=== PATIENT | female | born 1975 | race Asian ===

== ENCOUNTER → 2018-08-25 | Day surgery (SDC) | payer OTHER ==
--- NOTE | 2018-08-28 18:59 | OP ---
DATE OF OPERATION: 08/25/2018 PREOPERATIVE DIAGNOSIS: Right breast mass, 3 o'clock, 2 cm from the nipple, and left breast mass, 4 o'clock retroareolar. POSTOPERATIVE DIAGNOSIS: Right breast mass, 3 o'clock, 2 cm from the nipple, and left breast mass, 4 o'clock retroareolar. PROCEDURE: Bilateral ultrasound guided core biopsies and clip placements. ANESTHESIA: Local. ATTENDING: Elba Lugo M.D. ESTIMATED BLOOD LOSS: Minimal. COMPLICATIONS: None. DESCRIPTION OF PROCEDURE: Patient was made aware of the risks and benefits of the procedure and consented. She was placed in supine position. The right side was approached first. Under sterile conditions with 1% lidocaine for local anesthesia, a small olvin was made in the skin. Using a 13 gauge suction biopsy device, under ultrasound guidance multiple cores were obtained and submitted to pathology. Likewise under ultrasound guidance a U-shaped clip was placed into the biopsy region. The patient tolerated procedure well. Steri-Strips and a sterile bandage were then applied. The left side was then approached using separate instruments and biopsy needle. Under sterile conditions with 1% lidocaine for local anesthesia, a small olvin was made in the skin. Using a 13 gauge suction biopsy device, under ultrasound guidance multiple cores were obtained and submitted to pathology. Likewise under ultrasound guidance a bowtie clip was placed into the biopsy region. Well tolerated by the patient. Steri-Strips and a sterile bandage were applied. Will contact her with results. ELBA LUGO M.D. [id number]
--- NOTE | 2018-08-30 15:34 | PATH ---
Surgical Pathology Report Patient Name: GURINDER FREEMAN [facility]. Rec. #: [id number] /Age/Gender: 1975 (Age: 42) / F Account: [id number] Location: [facility] Taken: 08/25/2018 Received: 08/25/2018 Reported: 08/30/2018 Physicians: Elba Lugo M.D. Specimen(s) Received A: LEFT BREAST CORE BIOPSY 4NRA B: RIGHT BREAST CORE BIOPSY 3N2 Clinical History Non-palpable lesion, suspicious for malignancy Final Diagnosis A. LEFT BREAST, 4NRA, CORE BIOPSY: DUCTAL CARCINOMA IN SITU (DCIS), SOLID AND FOCAL MICROPAPILLARY TYPE, INTERMEDIATE NUCLEAR GRADE, WITH LOBULAR EXTENSION. Results of Estrogen Receptor (ER) and Progesterone Receptor (TN) studies performed on block "A1" at [facility] are as follows: ER (clone 6F11 mouse monoclonal antibody by Leica): 98% nuclear staining with strong intensity (Positive). TN (clone16 mouse monoclonal antibody by Leica): 90% nuclear staining with strong intensity (Positive). B. RIGHT BREAST, 3N+2, CORE BIOPSY: DUCTAL CARCINOMA IN SITU (DCIS), HIGH NUCLEAR GRADE, SOLID AND MICROPAPILLARY TYPE, WITH FOCAL NECROSIS AND ASSOCIATED CALCIFICATIONS. Results of Estrogen Receptor (ER) and Progesterone Receptor (TN) studies performed on block "B2" at [facility] are as follows: ER (clone 6F11 mouse monoclonal antibody by Leica): 98% nuclear staining with strong intensity (Positive). TN (clone16 mouse monoclonal antibody by Leica): 95% nuclear staining with strong intensity (Positive). Formalin fixation time (approximately 76 hours) exceeds current ASCO/CAP recommendations for ER, TN and Her2 testing (6-72 hrs). Negative results must be interpreted with caution as false negatives may occur. Cold ischemic time is within recommended guidelines. Comment: Immunohistochemical stains on blocks "A1", "B1" and "B2" show the following results: smooth muscle myosin heavy chain and p63 highlight the myoepithelial cell layer surrounding the lesional ducts, which support the diagnosis of carcinoma in situ. Immunohistochemical stain done on block "A1" shows E-Cadherin to be expressed by the tumor cells, confirms ductal cell phenotype. Electronically Signed Kiyoe Ramos, M.D. Gross Description A. Received in formalin, labeled "left breast core biopsy 4NRA" are 2cores of arthur and yellow soft tissue ranging from 0.9cm to 1.0cm cm in length with a diameter of up to 0.2 cm. Entirely submitted in one cassette. B. Received in formalin, labeled "right breast core biopsy 3N2" are multiple cores of light arthur and yellow-arthur tissue ranging from 0.5 cm to 1.5 cm in length with a diameter of up to 0.2 cm. Entirely submitted in two cassettes. Time from tissue taken to place in formalin: less than 1 minute Total formalin fixation time: Approximately 76 hours __ CHRISTOS/08/28/2018 nicholas/08/28/2018
== END | disposition home or self-care (01) ==
LOC: FRADUS-SUR 15:05
PROVIDERS: ATTEND Surgery Surgical Oncology
PROC: 0HBV3ZX Excision of Bilateral Breast, Percutaneous Approach, Diagnostic (ICD-10-PCS; principal; 2018-08-25)
DX: D05.12 Intraductal carcinoma in situ of left breast (principal); D05.11 Intraductal carcinoma in situ of right breast; N63.10 Unspecified lump in the right breast, unspecified quadrant; N63.23 Unspecified lump in the left breast, lower outer quadrant
CPT/HCPCS: 19083; 87899; 88305-TC; 88341-TC; 88342-TC; A4648

== ENCOUNTER 2018-10-10 08:00 | Inpatient (IN) | payer OTHER ==
--- NOTE | 2018-10-02 10:34 | HP ---
Admitting History and Physical - Primary Care Physician PCP: Elba Lugo - Admission Chief Complaint: Bilateral breast cancer History of Present Illness: 42 year old premenapausal female who recently tested BRCA2 +. Mammogram 08/21 Bilateral US showed suspicious calcifications right breast birad 0. 08/21/2018 Right mag view showed suspicious calcifications with the larger more posterior group seen on US and US core bx sugested. the smaller group could be done stereotactically. Birad 5. Bilateral US 08/21/2018 showed highly suspicious mass right breast in 3:00 position 2 to 3 cm FN .7x.5x.6 cm irregular and assiciated with calcifications. US core bx advised. Left breast 2 :00 2 cm FN showed mass versus complicated cyst .3x.2x.3 cm. Breast MRI 2017 showed suspicious mass 3 to 4:00 posotion on chest wall US core bx advised. probable benign .5 cm mass right breast Birad 4. Left breast suspicious 2 enhancing masses in the 3 to 4:00 position largest .4 cm. focused US left breast 08/24/2018 showed 4:00 position retroareolar regon2 hypoechoic masses which are felt to correspond to MRI..4 cm and .3 cm US guided core of the larger one was advised. Birad 4. 08/25/2018 US core biopsy bilateral core bxs Left retroareolar DCIS ER+pr+. right breast DCIS er+pr+. History Source: Patient Limitations to Obtaining History: No Limitations
--- NOTE | 2018-10-02 11:14 | HP ---
Admitting History and Physical - Primary Care Physician PCP: Elba Lugo - Admission Chief Complaint: Bilateral breast cancer BRCA2 positive History of Present Illness: 42 year old premenapausal female who recently tested positve for BRCA2 gene mutation. Screening mammogram 08/21/2018 showed suspicious calcifications right breast Birad 0. 08/21/2018 Right mag views showed suspicious calcifications with larger more posterior group seen on US US core BX suggested. The smaller group could be done stereotactically. Birad 5. Bilateral us 08/21/2018 showed highly suspicious mass right 3:00 2 to 3 cm FN .7x.5x.6 cm irregular and associated with calcifications. US core bx advised. Left breast showed mass versus cyst at 2:00 2 cm FN. Breast MRI 08/22/2018 showed suspicious mass 3 to 4:00 on chest wall and oprobably benign .5 cm mass right breast. left breast showed two suspicious enhancing masses3 to 4:00 which were felt to correspond to MRI 4 cm and 3 cm. US core bx of the larger one was advised. US core bxs bilaterally 08/25/2018 showed bilateral DCIS ER+ DC+, left was retroareolar. History Source: Patient Limitations to Obtaining History: No Limitations - Past Medical History Infectious Disease: Yes: Other (herpes simplex) - Smoking History Smoking history: Never smoked Have you smoked in the past 12 months: No - Alcohol/Substance Use Hx Alcohol Use: Yes (one per week) Home Medications - Allergies Allergies/Adverse Reactions: Allergies Allergy/AdvReac Type Severity Reaction Status Date / Time No Known Allergies Allergy Verified 10/02/18 10:59 - Home Medications Home Medications (free text): valcyclovir Family Disease History - Family Disease History Family Disease History: CA: Grandparent (pat GM breast bilateral at age 39) Other Family History: pat aunt breast ca 55. pat aunt breast ca BRCA + 60. pat aunt breast ca 60. pat aunt CRC BRCA + 60. mat aunt pancreatic ca 60 Physical Examination Constitutional: Yes: No Distress Breast(s): Yes: Other (Breast dense bilatrally symmetrical bilateral post biopsy changes noadenopathy bilaterally no palpable masses) Problem List - Problems (1) Bilateral malignant neoplasm of breast in female Code(s): C50.911 - MALIGNANT NEOPLASM OF UNSP SITE OF RIGHT FEMALE BREAST; C50.912 - MALIGNANT NEOPLASM OF UNSPECIFIED SITE OF LEFT FEMALE BREAST Qualifiers: Breast location: overlapping sites of breast Estrogen receptor status: positive Qualified Code(s): C50.811 - Malignant neoplasm of overlapping sites of right female breast; C50.812 - Malignant neoplasm of overlapping sites of left female breast; Z17.0 - Estrogen receptor positive status [ER+] Assessment/Plan Bilateral total mastectomies bilateral lymphoscintograms bilateral sentenel node biopsie reconstruction
[2018-10-03 11:27] VITALS: BMI 19.5
[2018-10-10] MEDS ORDERED: MIDAZOLAM HCL 2 MG/2 ML SINGLE DOSE VIAL ONE (10:45)
[2018-10-10] MEDS ORDERED: BUPIVACAINE HCL/PF 2.5 MG/ML - 30 ML VIAL IJ ONE (10:45)
[2018-10-10] MEDS ORDERED: BUPIVACAINE LIPOSOME/PF (EXPAREL) 266 MG/20 ML VIAL ONE (10:45)
[2018-10-10] MEDS ORDERED: ROCURONIUM BROMIDE 50 MG/5 ML VIAL ONE ×2 (10:58→15:50)
[2018-10-10] MEDS ORDERED: PROPOFOL 20 ML ONE ×6 (10:58→15:43)
[2018-10-10] MEDS ORDERED: LIDOCAINE HCL 2% JELLY (5 ML/TUBE) ONE ×2 (11:20)
[2018-10-10] MEDS ORDERED: ALBUTEROL SO4 8 GM HFA INHALER IH ONE (12:09)
[2018-10-10] MEDS ORDERED: GENTAMICIN SO4 80 MG/2 ML VIAL ONE ×2 (12:48→17:44)
[2018-10-10] MEDS ORDERED: ceFAZolin SODIUM 1 GM VIAL ONE ×4 (12:48→17:44)
[2018-10-10] MEDS ORDERED: ISOSULFAN BLUE 10 MG/ML VIAL SQ ONE (13:08)
[2018-10-10] MEDS ORDERED: HYDROmorphone HCL/PF 1 MG/ML AMP ONE ×2 (13:47→16:39)
[2018-10-10] MEDS ORDERED: ONDANSETRON 4 MG/2 ML VIAL IVPUSH PRN ×2 (16:41→16:56)
[2018-10-10] MEDS ORDERED: DEXAMETHASONE SOD PHOSPHATE 4 MG/1 ML VIAL ONE (16:42)
[2018-10-10] MEDS ORDERED: oxyCODONE HCL 5 MG TABLET PO PRN ×2 (16:45→16:47)
[2018-10-10] MEDS ORDERED: LACTATED RINGERS SOLUTION 1,000 ML IV SCH (16:45)
[2018-10-10] MEDS ORDERED: ePHEDrine SULFATE 50 MG/1 ML AMPULE ONE (16:48)
[2018-10-10] MEDS ORDERED: ACETAMINOPHEN 325 MG TABLET (FP) PO PRN (16:56)
[2018-10-10] MEDS ORDERED: ACETAMINOPHEN 325 MG TABLET (FP) PO SCH (17:00)
[2018-10-10] MEDS ORDERED: NITROGLYCERIN 2% OINTMENT - 1GM PACKET TD ONE (18:17)
--- NOTE | 2018-10-10 18:34 | OP ---
DATE OF OPERATION: 10/10/2018 PREOPERATIVE DIAGNOSIS: Bilateral ductal carcinoma in situ and gene positive. POSTOPERATIVE DIAGNOSIS: Bilateral ductal carcinoma in situ and gene positive. PROCEDURE: Bilateral nipple-sparing mastectomies with bilateral sentinel node biopsies. ANESTHESIA: General intubated. ATTENDING SURGEON: Carina Lugo M.D. LIBRARY SALES CONSULTANT: Monico Jacinto ESTIMATED BLOOD LOSS: 300 mL. COMPLICATIONS: None. DESCRIPTION OF PROCEDURE: Patient was made aware of the risks and benefits of the procedure and consented. Preoperatively the patient went to nuclear medicine where each breast was injected with a radiographic tracer. She was placed in a supine position on the operating table, and after general anesthesia was induced the patient was intubated. The operative site was prepped and draped in the usual sterile fashion. The left side was approached first. A curvilinear incision was made in the left breast. Using blunt and sharp dissection, tissues were dissected down where 3 lymph nodes were identified using the Neoprobe, and these were surgically excised and submitted for frozen section. Frozen section reported as no evidence of malignancy. Palpation of the rest of the axilla and interrogation with the Neoprobe shows no other suspicious nodes or hotspots. A 9-cm inframammary fold incision was then made. Using electrocautery, the breast tissue was taken off the pectoralis muscle. Using cutting on the PEEK device, the skin was taken off the breast tissue superior to the clavicle, medial to the sternum, and lateral to the latissimus dorsi. Breast was then submitted with a short suture superior, long suture lateral. Specimen radiographs confirmed the presence of the clip. The wound was copiously irrigated with normal saline, hemostasis maintained by electrocautery. The subareolar tissue was also biopsied, and that frozen section was also no evidence of malignancy. The right breast was then approached. Again, a curvilinear incision was made in the right axilla using blunt and sharp dissection. Tissues were dissected down to the axillary fat, where 2 hot lymph nodes were identified and submitted to pathology. These were again reported as no evidence of malignancy. Interrogation by the axilla with Neoprobe and palpation revealed no suspicious nodes or hotspots. The right breast was then approached, a 9-cm incision was made in the inframammary crease. Using electrocautery, the breast tissue was taken off the pectoralis muscle, and then using the PEEK cutting device, the skin flaps were made superior to the clavicle, lateral to the latissimus dorsi, and medial to the sternum. Breast was then submitted with a short suture superior, long suture lateral. Specimen radiographs confirmed the presence of the indexed lesion. Subareolar right frozen section again was reported as no evidence of malignancy. Wound was copiously irrigated with normal saline. Hemostasis maintained with electrocautery. Procedure was then turned over to Dr. Wil Saucedo, who did an immediate implant reconstruction. He will dictate his portion of the procedure. CARINA LUGO M.D. [id number]
[2018-10-10] MEDS ORDERED: ACETAMINOPHEN 325 MG TABLET (FP) ONE (18:53)
[2018-10-10] MEDS ORDERED: traMADol HCL 50 MG TABLET ONE (18:53)
[2018-10-10] MEDS: DEXTROSE 5%-0.45% SALINE 1,000 ML IV SCH (19:50)
[2018-10-10] MEDS ORDERED: CEFAZOLIN 1 GM/D5W 50 ML IVPB SCH (21:00)
[2018-10-10] MEDS: ACETAMINOPHEN 325 MG TABLET (FP) PO SCH ×2 (21:04→21:53)
[2018-10-10] MEDS: diazePAM 2 MG TABLET PO SCH (21:05)
[2018-10-10] MEDS: CEFAZOLIN 1 GM/D5W 1 GM/50 ML BAG IVPB SCH (21:05)
[2018-10-10] MEDS: traMADol HCL 50 MG TABLET PO SCH (21:05)
--- NOTE | 2018-10-10 21:30 | SURG ---
Surgery Fuel Technician Note Fuel Technician: Mike Smith PA-C Date of Service: 10/10/18 Diagnosis: Bilateral breast cancer BRCA2 positive Procedure: bilateral breast reconstruction with alloderm and implants I was present for the entirety of the operative procedure. For further detail, please refer to operative report. Visit type - Case Type Case Type: Scheduled - New patient This patient is new to me today: Yes Date on this admission: 10/10/18
[2018-10-10] MEDS ORDERED: ZOLPIDEM TARTRATE 5 MG TABLET PO PRN (22:00)
[2018-10-11] MEDS: ACETAMINOPHEN 325 MG TABLET (FP) PO SCH ×4 (02:48→21:37)
[2018-10-11] MEDS: CEFAZOLIN 1 GM/D5W 1 GM/50 ML BAG IVPB SCH (02:48)
[2018-10-11] MEDS: traMADol HCL 50 MG TABLET PO SCH ×4 (06:42→22:26)
[2018-10-11] MEDS: HEPARIN NA (PORCINE) 5,000 UNITS/ML 1ML VIAL SQ SCH ×2 (06:42→18:16)
--- NOTE | 2018-10-11 07:28 | OP ---
Operative Note - Note: Operative Date: 10/10/18 Pre-Operative Diagnosis: bilateral absence of breasts Operation: bilateral breast reconstruction with silicone gel implants and alloderm Findings: above Implants: [id number] x 2 Post-Operative Diagnosis: Same as Pre-op Surgeon: Wil Saucedo Risk Adjustment Specialist: Mike Smith Anesthesia: General Drains & Tubes with Location: PHIL x 4 Operative Report Dictated: Yes
--- NOTE | 2018-10-11 07:32 | PN ---
Progress Note (short form) - Note Progress Note: POD 1 Afebrile, VSS, no tachycardia, no evidence of bleed PHIL's all serosanguinous and functioning well All tissues viable with no early signs of flap ischemia. Nipple viability is too early to tell. Patient complaining of no pain, though block is in and effective. Ambulating, using IS OK to start SQ heparin this AM. OK for discharge home with ABX and paim meds if cleared by Gen surg team. Keep all dressings on and dry until follow up with Sheryl in one week. Teach PHIL care.
--- NOTE | 2018-10-11 08:20 | OP ---
DATE OF OPERATION: 10/10/2018 TITLE OF PROCEDURE: 1. Bilateral breast reconstruction using silicone gel breast implants. 2. Bilateral application of acellular dermal matrix for bilateral breast reconstruction. 3. Intraoperative angiography/SPY indocyanine perfusion scan. 4. Bilateral 2-cm complex axillary wound closure for sentinel lymph node biopsy defects. ATTENDING SURGEON: Wil Saucedo MD ASSISTANTS: BRITTANIE Jimenez, and his surgical dental assistant Edilma PREOPERATIVE DIAGNOSIS: Breast cancer, status post bilateral absence of breasts. The procedure is performed in combination with a bilateral mastectomy and sentinel lymph node biopsy performed by Dr. Elba Lugo and his team. That portion of the procedure will be dictated separately by Dr. Elba Lugo and his team. DESCRIPTION OF PROCEDURE: The patient is seen preoperatively in the holding area, where she is marked for incisions. It is pointed out to the patient that there is significant chest wall asymmetry, with the right side of her chest being less projecting and more posterior than the left side of her chest. Additionally, the left inframammary fold is 1.5 cm higher than the right inframammary fold. There is also significant asymmetry in the nipple position, with the left nipple being higher. It is discussed with the patient that modifications would be made to the inframammary folds to compensate for this. However, we were limited by nipple position and the concern that lowering the folds too far would cause a bizarre appearance of the nipple as it related to the implant. She understands this. Also understands the limitations at the likely outcome of at least some asymmetry. She agrees to proceed. The patient was given RAMESH sequential compression stockings in the holding area. She was brought to the operating room, placed in the supine position, and position points were carefully checked and padded by the surgical and anesthesia teams. She was prepped and draped in the standard surgical fashion. A time-out was called. A Velazquez catheter was placed prior to surgery, which was removed at the end of the procedure. The initial prepping, draping and positioning were performed by the mastectomy surgery team. That portion was dictated by them. I was called in after completion of the left-sided mastectomy, to begin reconstruction. At this point, reconstruction begins by copious irrigation of the mastectomy wound and hemostasis. At this point the inferolateral free edge of the pectoralis major muscle is elevated, and a subpectoral plane is dissection to the medial sternal attachments. The inferior costal attachments of the pectoralis major muscle are likewise divided, and a superior flap of muscle is developed. The inframammary fold, which was preoperatively marked, is then marked within the mastectomy wound. A large sheet of contoured, perforated AlloDerm was then brought into the field. It was rinsed with standard triple antibiotic solution, oriented properly and then secured to the medial, inferior and lateral mammary folds. The 10-cm width of the implant is considered, and the width of the pocket is made in this width. The AlloDerm is secured in position with a 2-0 PDS suture. At this point the breast implant is brought onto the field. A [employer] SM smooth round silicone gel implant is brought onto the field, rinsed with standard triple antibiotic solution. With new gloves, it is placed into the created pocket with a 1-touch technique. The implant is oriented properly. The superior free edge of the AlloDerm is then sewn to the inferior free edge of the pectoralis major muscle with a running 2-0 PDS suture. Skin flap is redraped over the reconstruction and tailor tacked. At this point a mirror image was performed on the contralateral side at the completion of the right mastectomy, with the skin tailor tacked. The SP intraoperative angiography indocyanine scan is then brought in. Excellent global perfusion is seen on both sides within a short period of time. Hemostasis is once again meticulously achieved on both sides. The wounds are copiously irrigated with triple antibiotic solution. The distal millimeters of the inframammary incision are excised with facelift scissors. Good dermal bleeding is seen globally. Size 15 round Vince drains were then brought out through lateral separate stab wound incisions and secured with 2-0 silk drain sutures. The superior-most drain is draped through the axillary and into the superior recess of the wound. The inferior-most drain is draped along the inferior recess of the wound and into the medial fold. The bilateral axillae are closed. The axillary fascia is sutured with 3-0 Monocryl suture. The dermis was approximated with a series of interrupted buried deep dermal 3-0 Monocryl suture, and the skin was then approximated with a running subcuticular 3-0 Monocryl suture. The closure of both inframammary was then performed with first a deep fatty capsular running 3-0 Monocryl suture, followed by a series of interrupted buried deep dermal 3-0 Monocryl suture, followed by running subcuticular 3-0 Monocryl suture. The incisions were dressed with Steri-Strips. The inferior skin flaps and nipple areolas are treated with prophylactic routine nitro paste. Telfa gauze is applied. Sterile gauze is applied. A surgical bra is applied. Drains were placed to bulb suction. The patient was awoken from anesthesia, having tolerated the procedure well, and transferred to the recovery room without complication. Andre [id number]
[2018-10-11] MEDS: CEFAZOLIN 1 GM/D5W 1 GRAM/50 ML BAG IVPB SCH ×3 (08:21→21:37)
[2018-10-11 08:41] LABS: HEMATOCRIT 22.5 % (32.4-45.2); HEMOGLOBIN 7.4 GM/dl (10.7-15.3); MCH 31.2 pg (25.7-33.7); MEAN CELL VOLUME 94.7 fl (80-96); MEAN PLT VOLUME 8.9 fl (7.5-11.1); PLATELET COUNT 182 K/MM3 (134-434); RBC 2.37 M/mm3 (3.60-5.2); RDW 12.8 % (11.6-15.6); WHITE BLOOD COUNT 13.7 K/mm3 (4.0-10.8)
--- NOTE | 2018-10-11 08:56 | PN ---
Progress Note, Physician Chief Complaint: Bilateral breast cancer and BRCA + S/P bilateral total nipple sparing mastectomies sentenel node biopsies implant and alloderm reconstruction History of Present Illness: patient is eating no nausea ,pain controlled with minimal medication , Block worked well ,Slightly lightheaded BP 112/42, H/H 22.5/7.4. - Current Medication List Current Medications: Active Medications Acetaminophen (Tylenol -) 650 mg PO Q4H PRN PRN Reason: FEVER Acetaminophen (Tylenol -) 650 mg PO Q6H [facility] Last Admin: 10/11/18 08:20 Dose: 650 mg Diazepam (Valium -) 2 mg PO BID [facility] Last Admin: 10/10/18 21:05 Dose: Not Given Heparin Sodium (Porcine) (Heparin -) 5,000 unit SQ BID@0700,1900 [facility] Last Admin: 10/11/18 06:42 Dose: 5,000 unit Dextrose/Sodium Chloride (D5-1/2ns -) 1,000 mls @ 100 mls/hr IV ASDIR [facility] Last Admin: 10/10/18 19:50 Dose: 150 mls Cefazolin Sodium (Ancef 1 Gm Premixed Ivpb -) 1 gram in 50 mls @ 100 mls/hr IVPB Q6H-IV [facility] Last Admin: 10/11/18 08:21 Dose: 100 mls/hr Ondansetron HCl (Zofran Injection) 4 mg IVPUSH Q6H PRN PRN Reason: NAUSEA AND/OR VOMITING Oxycodone HCl (Roxicodone -) 5 mg PO Q3H PRN PRN Reason: PAIN LEVEL 1-5 Oxycodone HCl (Roxicodone -) 10 mg PO Q4H PRN PRN Reason: PAIN LEVEL 6-10 Tramadol HCl (Ultram -) 50 mg PO TID [facility] Last Admin: 10/11/18 06:42 Dose: 50 mg Valacyclovir HCl (Valtrex -) 500 mg PO DAILY [facility] Zolpidem Tartrate (Ambien -) 5 mg PO HS PRN PRN Reason: Insomnia - Objective Vital Signs: Vital Signs Temperature 98.1 F 10/11/18 06:00 Pulse Rate 66 10/11/18 06:00 Respiratory Rate 18 10/11/18 08:24 Blood Pressure 112/42 L 10/11/18 06:00 O2 Sat by Pulse Oximetry (%) 99 10/11/18 08:24 Constitutional: Yes: No Distress Breast(s): Yes: Other (Breast falps viable and nipples no signs of infection or hematoma minimal echymosis ady drains functioning well incision intact) Labs: CBC, BMP 10/11/18 08:05 Problem List - Problems (1) Bilateral malignant neoplasm of breast in female Code(s): C50.911 - MALIGNANT NEOPLASM OF UNSP SITE OF RIGHT FEMALE BREAST; C50.912 - MALIGNANT NEOPLASM OF UNSPECIFIED SITE OF LEFT FEMALE BREAST Qualifiers: Breast location: overlapping sites of breast Estrogen receptor status: positive Qualified Code(s): C50.811 - Malignant neoplasm of overlapping sites of right female breast; C50.812 - Malignant neoplasm of overlapping sites of left female breast; Z17.0 - Estrogen receptor positive status [ER+] Assessment/Plan continue IV antibiotics SQ Heparin SCD spirometry tramadol,tylenol,valium prn
[2018-10-11] MEDS: valACYclovir HCL 500 MG TABLET (FP) PO SCH (09:44)
[2018-10-11] MEDS: diazePAM 2 MG TABLET PO SCH (09:45)
--- NOTE | 2018-10-11 09:58 | PN ---
Progress Note (short form) - Note Progress Note: 43F POD1 s/p bilateral prophylactic mastectomy with bilateral sentinel lymph node biopsy and bilateral reconstruction under GA-ETT with bilateral PECS I and II blocks for post operative pain relief. Pt reports minimal to no pain, requiring only tylenol. Pt denies nausea. Pt reports some lightheadedness, perhaps secondary to dilutional anemia. AVSS. BP is at patient's baseline. Consider repeat CBC today, decreasing IVF now that patient is eating and drinking normally. Will follow.
[2018-10-11] MEDS: DEXTROSE 5%-0.45% SALINE 1,000 ML IV SCH (18:19)
[2018-10-12 02:01] VITALS: TEMP 98.7
[2018-10-12] MEDS: CEFAZOLIN 1 GM/D5W 1 GRAM/50 ML BAG IVPB SCH ×2 (03:26→09:19)
[2018-10-12] MEDS: diazePAM 2 MG TABLET PO SCH ×2 (03:26→09:20)
[2018-10-12] MEDS: ACETAMINOPHEN 325 MG TABLET (FP) PO SCH ×2 (03:26→09:23)
[2018-10-12] MEDS: HEPARIN NA (PORCINE) 5,000 UNITS/ML 1ML VIAL SQ SCH (06:35)
[2018-10-12] MEDS: traMADol HCL 50 MG TABLET PO SCH (06:44)
[2018-10-12 06:56] VITALS: BP 93/43; PULSE 65
[2018-10-12] MEDS: valACYclovir HCL 500 MG TABLET (FP) PO SCH (09:19)
--- NOTE | 2018-10-12 09:22 | PN ---
Progress Note, Physician Chief Complaint: Bilateral breast cancer BRCA + S/P bilateral total nipple sparing mastectomies bilateral sentenel node biopsies, implant and alloderm reconstruction POD#2 History of Present Illness: Patient is Up in bed ,using bathroom, spirometry, lightheadedness improved, Ready for discharge after Dr Saucedo examines patient this am - Current Medication List Current Medications: Active Medications Acetaminophen (Tylenol -) 650 mg PO Q4H PRN PRN Reason: FEVER Acetaminophen (Tylenol -) 650 mg PO Q6H [facility] Last Admin: 10/12/18 03:26 Dose: 650 mg Diazepam (Valium -) 2 mg PO BID [facility] Last Admin: 10/12/18 03:26 Dose: 2 mg Heparin Sodium (Porcine) (Heparin -) 5,000 unit SQ BID@0700,1900 [facility] Last Admin: 10/12/18 06:35 Dose: 5,000 unit Dextrose/Sodium Chloride (D5-1/2ns -) 1,000 mls @ 100 mls/hr IV ASDIR [facility] Last Admin: 10/11/18 18:19 Dose: 100 mls/hr Cefazolin Sodium (Ancef 1 Gm Premixed Ivpb -) 1 gram in 50 mls @ 100 mls/hr IVPB Q6H-IV [facility] Last Admin: 10/12/18 03:26 Dose: 100 mls/hr Ondansetron HCl (Zofran Injection) 4 mg IVPUSH Q6H PRN PRN Reason: NAUSEA AND/OR VOMITING Oxycodone HCl (Roxicodone -) 5 mg PO Q3H PRN PRN Reason: PAIN LEVEL 1-5 Oxycodone HCl (Roxicodone -) 10 mg PO Q4H PRN PRN Reason: PAIN LEVEL 6-10 Tramadol HCl (Ultram -) 50 mg PO TID [facility] Last Admin: 10/12/18 06:44 Dose: Not Given Valacyclovir HCl (Valtrex -) 500 mg PO DAILY [facility] Last Admin: 10/11/18 09:44 Dose: 500 mg Zolpidem Tartrate (Ambien -) 5 mg PO HS PRN PRN Reason: Insomnia - Objective Vital Signs: Vital Signs Temperature 98.7 F 10/12/18 06:00 Pulse Rate 65 10/12/18 06:00 Respiratory Rate 18 10/12/18 06:00 Blood Pressure 93/43 L 10/12/18 06:00 O2 Sat by Pulse Oximetry (%) 95 10/12/18 06:00 Constitutional: Yes: No Distress Breast(s): Yes: Other (Bilateral chest wall flaps viable, incision intact PHIL drains functioning well, no signs of infection no echymosis nipples viable) Labs: CBC, BMP 10/11/18 08:05 Problem List - Problems (1) Bilateral malignant neoplasm of breast in female Code(s): C50.911 - MALIGNANT NEOPLASM OF UNSP SITE OF RIGHT FEMALE BREAST; C50.912 - MALIGNANT NEOPLASM OF UNSPECIFIED SITE OF LEFT FEMALE BREAST Qualifiers: Breast location: overlapping sites of breast Estrogen receptor status: positive Qualified Code(s): C50.811 - Malignant neoplasm of overlapping sites of right female breast; C50.812 - Malignant neoplasm of overlapping sites of left female breast; Z17.0 - Estrogen receptor positive status [ER+] Assessment/Plan Discharge home today cefadroxil BID,tramadol and valium prn wear bra,no shower Follow up with Dr Lugo and Dr Saucedo next week
--- NOTE | 2018-10-12 09:23 | DS ---
Physical Examination Vital Signs: Vital Signs Temperature 98.7 F 10/12/18 06:00 Pulse Rate 65 10/12/18 06:00 Respiratory Rate 18 10/12/18 06:00 Blood Pressure 93/43 L 10/12/18 06:00 O2 Sat by Pulse Oximetry (%) 95 10/12/18 06:00 Constitutional: Yes: No Distress Breast(s): Yes: Other (Bilateral chest wall sin flaps viable incision intact no infection ady drains functioning well) Labs: CBC, BMP 10/11/18 08:05 Discharge Summary Reason For Visit: BILATERAL BREAST CA Condition: Good - Instructions Diet, Activity, Other Instructions: Post Operative Instructions - [facility] We hope your recovery will be uneventful. For those of you who have been given general anesthesia, there is a possibility you might have some lightheadedness and possibly nausea. It is important that each patient, especially those who have had general anesthesia, follow these instructions, please: 1. Do NOT operate a motor vehicle for 24 hours. 2. Do NOT drink any alcoholic beverages for 24 hours. 3. Do NOT take any sedatives, narcotics, or tranquilizers for 24 hours unless specifically ordered by your surgeon. 4. Do NOT undertake any strenuous exercise or outside activity for 24 hours unless specifically permitted by your surgeon. 5. Eat light foods that are easy to digest. If you have any problems with nausea and vomiting, lie down and rest. If it continues, call your surgeon. 6. Call your surgeon AT ONCE if you have problems with: a. Bleeding b. Urinating c. Excessive pain or drainage d. Numbness If any problems occur, call your physician first. If you cannot reach him/her, call the Ambulatory Surgery Unit at [phone], or the Emergency Room at . Follow up with Drs. Curtis / Wing in 7 days. Medication: Vicodin E-S OR Percocet 1-2 tablets every 4-6 hrs as needed for 5-7 days. Wound Care: Keep wound dry and clean for 48 hours. You may remove the dressing after 48 hours and may shower. Keep steri-strips in place until follow-up appointment No heavy lifting or strenuous activities. BREAST SURGERY INSTRUCTIONS Marino Curtis M.D., FACS Diogenes Curtis M.D., MOOSE Dimas M.D., FACS 1. Please call the office at to make a follow up appointment with your surgeon. This number can be also used for any urgent issues you may have. 2. Call us immediately if any of the following occur: *Bleeding from the incision or drain site (a small amount is normal) *Fever or chills *Redness and worsening tenderness around the surgical site *Drainage of pus or fluid from the incision or drain site 3. You may change the surgical dressing two (2) days after your surgery, and may shower then. If you have drains, you may shower after they have been removed, until then take a sponge bath. 4. It is normal for there to be some bruising and tenderness around the surgical site, and the breast may also be firm in this area. 5. Your surgeon used 3M DuraPrep Surgical Solution, a bacteria-killing skin preparation. It is recommended that this film remain on the skin after the procedure. The film will gradually wear away. If, however, early removal is desired: 1. Apply 8610 or 8611 3M Remover solution to the prepped area, keeping away from the wound edge or puncture site. Wipe off with a disposable towel. OR 2. Soak gauze with 70% Isopropyl alcohol and place on the prepped area for at least 40 seconds. Lightly scrub to remove the solution. 6. Please wear a comfortable bra (sports or surgical bra) all day and all night until your first follow-up visit with your surgeon. 7. The pain medicine you have been prescribed may make you constipated; make sure you drink plenty of water. You may use an over the counter laxative if needed. 8. You may resume your normal diet after surgery, although you may want to avoid rich foods for the first twenty-four (24) hours after surgery. Alcoholic drinks should be avoided while taking the prescribed pain medicine. 9. You may resume normal activities as long as there is no discomfort, but do not do upper body exercises until after your follow-up appointment. Do not lift anything heavier than a large phone book. You may resume driving once you have stopped taking the prescribed pain medicine and feel comfortable doing arm movements.Leave all dressings on and dry. Teach ADY care and logging. Call for any increased pain or breast size or fever. Otherwise, follow up with [facility] in one week. Empty and record ADY output twice daily. No shower Referrals: Wil Saucedo MD [Staff Physician] - Elba Lugo MD [Staff Physician] - Disposition: HOME - Home Medications Comprehensive Discharge Medication List: Ambulatory Orders Calcium Carbonate/Vitamin D3 [Calcium 600 + Vit D Tablet] 2 each PO DAILY Finasteride [Proscar -] 2.5 mg PO DAILY 10/03/18 Mv-Min/Iron/Folic/Calcium/Vitk [Women's Daily Formula Tablet] 1 each PO DAILY Valacyclovir HCl [Valtrex] 500 mg PO DAILY 10/03/18 Cefadroxil 500 mg PO BID #20 capsule 10/11/18 Diazepam [Valium] 5 mg PO Q8H PRN #7 tablet MDD 3 10/11/18 Tramadol HCl 50 mg PO TID PRN #10 tablet MDD 3 10/11/18
--- NOTE | 2018-10-18 14:28 | PATH ---
Surgical Pathology Report Patient Name: GURINDER FREEMAN Med. Rec. #: [id number] /Age/Gender: 1975 (Age: 43) / F Account: [id number] Location: [facility] MED-SURG Taken: 10/10/2018 Received: 10/10/2018 Reported: 10/18/2018 Physicians: Elba Lugo M.D. Specimen(s) Received A: LEFT AXILLARY SENTINEL NODES (FS) B: LEFT RETROAREOLAR BIOPSY (FS) C: RIGHT AXILLARY SENTINEL NODES (FS) D: RIGHT RETROAREOLAR BIOPSY (FS) E: LEFT MASTECTOMY F: RIGHT MASTECTOMY Clinical History DCIS Intraoperative Consult Diagnosis A. Left axillary sentinel nodes, frozen section: Two negative lymph nodes (0/2). B. Left retroareolar biopsy, frozen section: Negative for malignancy. C. Right axillary sentinel nodes, frozen section: Three negative lymph nodes (0/3). D. Right retroareolar biopsy, frozen section: Negative for malignancy. Ollie Haynes M.D., 10/11/18 Final Diagnosis A. lymph nodes, left axillary sentinel, excision (FS): Two lymph nodes, negative for metastatic carcinoma (0/2). B. retroareola, left, biopsy (FS): Benign breast tissue; negative for malignancy. C. lymph nodes, right axillary sentinel, excision (FS): Three lymph nodes, negative for metastatic carcinoma (0/3). D. retroareola, right, biopsy (FS): Benign breast tissue; negative for malignancy. E. 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 (See note). DCIS is present in five of sixteen slides (5/16), with the largest contiguous focus of DCIS spanning AT LEAST 6 mm in greatest dimension, microscopically. Surgical margins are uninvolved by DCIS; DCIS is at 4 mm from the closest (anterior) margin. Pathologic stage (pTNM): pTis (dcis) pN0. see also DCIS case summary below. F. 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 (See note). DCIS is present in SEVEN OF SEVENTEEN slides (7/17) with the largest contiguous focus of DCIS spanning 1.2 Cm in greatest dimension, microscopically. DCIS is close to (< 1 mm) the anterior and deep margins at a few foci. Pathologic stage (pTNM): pTis (dcis) pN0. see also DCIS case summary below. Note: Myoepithelial immunohistochemical markers (SMM-HC and p63, performed at [facility] on blocks E12, F1, F3) demonstrate the presence of myoepithelial cells in foci of lobular extension of DCIS with sclerosis, and aid in ruling out the presence of microinvasion in these foci. These findings supports the diagnosis. Comments DCIS of the Breast: Surgical Pathology Cancer Case Summary (Based on AJCC TNM 8 th edition) Left Breast (E): Procedure _X_ Total mastectomy (including nipple-sparing and skin-sparing mastectomy) Specimen Laterality _X_ Left Size (Extent) of DCIS Estimated size (extent) of DCIS (greatest dimension using gross and microscopic evaluation): at least 6 mm Number of blocks with DCIS: 5 Number of blocks examined: 16 Note: The size (extent) of DCIS is an estimation of the volume of breast tissue occupied by DCIS. Histologic Type _X_ Ductal carcinoma in situ Architectural Patterns _X_ Cribriform _X_ Micropapillary _X_ Solid Nuclear Grade _X_ Grade III (high) Necrosis _X_ Present, moderate Margins _X_ Uninvolved by DCIS Distance from closest margin (millimeters): 4 mm Closest margin: anterior Regional Lymph Nodes Number of Lymph Nodes with Macrometastases (>2 mm): 0 Number of Lymph Nodes with Micrometastases (>0.2 mm to 2 mm and/or >200 cells): 0 Number of Lymph Nodes with Isolated Tumor Cells (=0.2 mm and =200 cells): 0 Number of Lymph Nodes Examined: 2 Number of [place] Nodes Examined (required only if sentinel nodes are present): 2 Pathologic Stage Classification (pTNM, AJCC 8th Edition) Primary Tumor (pT) _X_ pTis (DCIS): Ductal carcinoma in situ Regional Lymph Nodes (pN) _X_ pN0 Microcalcifications _X_ Present in nonneoplastic tissue Biomarker Studies Results of ER and VT studies performed on prior biopsy ([id number]) at [facility] are as follows: ER (clone [id number] mouse monoclonal antibody by [employer]): 98 % nuclear staining with strong intensity (Positive). VT (clone16 mouse monoclonal antibody by [employer]): 90 % nuclear staining with strong intensity (Positive). DCIS of the Breast: Surgical Pathology Cancer Case Summary (Based on AJCC TNM 8 th edition) Right breast: Procedure _X_ Total mastectomy (including nipple-sparing and skin-sparing mastectomy) Specimen Laterality _X_ Right Size (Extent) of DCIS Estimated size (extent) of DCIS (greatest dimension using gross and microscopic evaluation): at least 12 mm Number of blocks with DCIS: 7 Number of blocks examined: 17 Note: The size (extent) of DCIS is an estimation of the volume of breast tissue occupied by DCIS. Histologic Type _X_ Ductal carcinoma in situ Architectural Patterns _X_ [place] _X_ Solid Nuclear Grade _X_ Grade III (high) Necrosis _X_ Present, moderate Margins _X_ Uninvolved by DCIS Distance from closest margin (millimeters) : < 1 mm from deep and anterior margin Regional Lymph Nodes Number of Lymph Nodes with Macrometastases (>2 mm): 0 Number of Lymph Nodes with Micrometastases (>0.2 mm to 2 mm and/or >200 cells): 0 Number of Lymph Nodes with Isolated Tumor Cells (=0.2 mm and =200 cells): 0 Number of Lymph Nodes Examined: 3 Number of [place] Nodes Examined : 3 Pathologic Stage Classification (pTNM, AJCC 8th Edition) Primary Tumor (pT) _X_ pTis (DCIS): Ductal carcinoma in situ Regional Lymph Nodes (pN) _X_ pN0 Microcalcifications _X_ Present in DCIS _X_ Present in nonneoplastic tissue Biomarker Studies Results of ER and VT studies performed on prior biopsy ([id number]) at [facility] are as follows: ER (clone 6F11 mouse monoclonal antibody by Le[employer]): 98 % nuclear staining with strong intensity (Positive). VT (clone16 mouse monoclonal antibody by [employer]): 95 % nuclear staining with strong intensity (Positive). Electronically Signed Teresa Haynes M.D. Gross Description A. Received fresh labeled "left axillary sentinel nodes," are 2 lymph nodes measuring 1.3 x 0.6 x 0.3 cm and 0.7 x 0.6 x 0.3 cm. Frozen section is performed on the lymph nodes. The frozen section residue is entirely submitted in one cassette. B. Received fresh labeled "left retroareolar biopsy," is a 0.4 x 0.2 x 0.2 cm portion of red-arthur tissue. Frozen section is performed on the tissue. The frozen section residue is entirely submitted in one cassette. C. Received fresh labeled "right axillary sentinel nodes," are 3 lymph nodes ranging from 0.4-1.4 cm in greatest dimension. The largest lymph node is bisected and frozen section is performed on the lymph nodes. The frozen section residue is entirely submitted in 2 cassettes as follows: 1-larger bisected lymph node; 2-two whole lymph nodes. D. Received fresh labeled "right retroareolar biopsy," is a 0.4 x 0.3 x 0.1 cm portion of red-arthur tissue. Frozen section is performed on the tissue. The frozen section residue is entirely submitted in one cassette. E. Received in formalin, labeled "left mastectomy," is a 159 gram, 14.5 x 11.0 x 2.1 cm. left mastectomy specimen with a short suture marking the superior aspect and a long suture marking the lateral aspect of the specimen, per the surgeon. There is no skin present. The deep margin is inked black and the anterior soft tissue margin is inked blue. The specimen is serially sectioned from medial to lateral. Sectioning reveals abundant dense, white, focally firm fibrous tissue. There is a cordova metallic biopsy clip identified in the lower inner quadrant (LIQ). There is no definitive mass identified. Mulling Machine Operator sections are submitted in 16 cassettes as follows: 1-4-LIQ tissue from area of biopsy clip; 9-1-fowqkvrzyx LIQ; 7-10-upper inner quadrant; 11-12-upper outer quadrant; 13-14-lower outer quadrant; 15-anterior soft tissue margin; 16-deep margin. Time to formalin fixation: 16 minutes Total formalin fixation time: Approximately 26 hours. F. Received in formalin, labeled "right mastectomy," is a 167 gram, 13.0 x 11.5 x 1.9 cm. right mastectomy specimen with a short suture marking the superior aspect and a long suture marking the lateral aspect of the specimen, per the surgeon. There is no skin present. The deep margin is inked black and the anterior soft tissue margin is inked blue. The specimen is serially sectioned from lateral to medial. Sectioning reveals a 1.0 x 0.8 x 0.8 cm focus of firm fibrous tissue containing a cordova metallic biopsy clip in the lower inner quadrant (LIQ). The remaining breast parenchyma displays abundant dense, white, focally firm fibrous tissue. No definitive mass is identified. Mulling Machine Operator sections are submitted in 17 cassettes as follows: 1-2-LIQ tissue from area of biopsy clip; 0-0-fnrhsaymoe LIQ tissue; 7-8-upper inner quadrant; 9-12-upper outer quadrant; 13-15-lower outer quadrant; 16-anterior soft tissue margin; 17-deep margin. Time to formalin fixation: 20 minutes Total formalin fixation time: Approximately 25 hours. 10/11/2018 [facility]10/11/2018
== END 2018-10-12 11:13 | disposition home or self-care (01) | DRG 581 ==
LOC: FM/S 09:33
PROVIDERS: ADMIT Surgery Surgical Oncology; ATTEND Surgery Surgical Oncology
PROC: 07B90ZX Excision of Left Internal Mammary Lymphatic, Open Approach, Diagnostic (ICD-10-PCS; principal; 2018-10-11)
PROC: 0HRV075 Replacement of Bilateral Breast using Latissimus Dorsi Myocutaneous Flap, Open Approach (ICD-10-PCS; 2018-10-11)
PROC: 07B80ZX Excision of Right Internal Mammary Lymphatic, Open Approach, Diagnostic (ICD-10-PCS; 2018-10-11)
DX: D05.12 Intraductal carcinoma in situ of left breast (principal); D05.11 Intraductal carcinoma in situ of right breast; Z17.0 Estrogen receptor positive status [ER+]; Z80.3 Family history of malignant neoplasm of breast; Z15.01 Genetic susceptibility to malignant neoplasm of breast
CPT/HCPCS: 36415; 78195-TC; 84703; 85027; 88307-TC; 88331-TC; 88341-TC; 94760; A9541; J1644